=== PATIENT | female | born 1985 | race Caucasian/White ===

== ENCOUNTER 2016-07-03 09:37 | Day surgery (SDC) | payer OTHER ==
[2016-07-03] VITALS (7 sets, daily range): BP systolic 101–118; BP diastolic 68–80; PULSE 44–77; TEMP 98.5
[~2016-07-03] VITALS: Ht 165.1 cm; Wt 72.7 kg
[~2016-07-03 09:37] MED LIST: BCP TD; PRENATAL1 TA1 PO; WARFARIN; ZITHROMAX 250M250 MG PO
[2016-07-03 10:27] LABS: BASO % 0.5 % (0.0-2.0); EOS # 0.2 (0.0-0.7); GRAN # 5.8 (1.4-6.5); GRAN % 72.6 % (42.2-75.2); HEMATOCRIT 41.7 % (37.0-47.0); HEMOGLOBIN 14.7 g/dl (12.5-16.0); LYMPH # 1.4 (1.2-3.4); LYMPH % 17.8 % (20.0-51.0); MEAN CELL VOLUME 93 fl (80.0-100.0); MEAN CORPUSCULAR HEMOGLOBIN 33 pg (27.0-31.0); MEAN CORPUSCULAR HGB CONC 35 g/dl (33.0-37.0); MONO # 0.5 (0.1-0.6); MONO % 6.7 % (1.7-9.3); PLATELET COUNT 143 K/mm3 (130-400); RED BLOOD COUNT 4.49 M/mm3 (4.10-5.30); WHITE BLOOD COUNT 7.9 K/mm3 (4.8-10.8)
[2016-07-03 10:39] LABS: INR 1.1 (0.8-3.0); PROTHROMBIN TIME 12.1 SECONDS (9.7-12.8)
[2016-07-03 10:42] LABS: ADJUSTED CALCIUM 9.3 mg/dL (8.4-10.2); ALANINE AMINOTRANSFERASE 27 U/L (9-52); ALBUMIN 4.2 gm/dL (3.5-5.0); ALKALINE PHOSPHATASE 50 U/L (50-136); ANION GAP 10 mmol/L (7-16); BILIRUBIN,TOTAL 1.1 mg/dL (0.0-1.0); BLOOD UREA NITROGEN 18 mg/dL (7-17); CALCIUM 9.5 mg/dL (8.4-10.2); CARBON DIOXIDE 21 mmol/L (22-30); CHLORIDE 103 mmol/L (98-107); CREATININE, serum 1.03 mg/dL (0.52-1.25); GLUCOSE 112 mg/dL (74-106); PARTIAL THROMBOPLASTIN TIME 31.3 SECONDS (26.0-37.0); SODIUM 134 mmol/L (137-145); TOTAL PROTEIN 7.3 gm/dL (6.4-8.2)
[2016-07-03 10:53] LABS: B-TYPE NATRIURETIC PEPTIDE 1020 pg/mL (0-125)
[2016-07-03 10:55] LABS: TROPONIN-I < 0.012 ng/mL (0.000-0.034)
[2016-07-03] MEDS ORDERED: CEPHALEXIN500 M1 PO (15:19)
[2016-07-03] MEDS ORDERED: NORCO 325 MG-51 TAB PO (15:20)
== END 2016-07-03 17:00 | disposition home or self-care (01) ==
LOC: COL.ER 09:37 → EUO 12:50 → COL.ER 13:05 → PEDS 13:05 → COL.ER 14:13 → PEDS 14:13 → EUO 15:37 → PEDS 15:37 → EUO 17:00
PROVIDERS: Emergency Medicine
DX: Z45.010 Encounter for checking and testing of cardiac pacemaker pulse generator [battery] (principal); I44.2 Atrioventricular block, complete; I08.1 Rheumatic disorders of both mitral and tricuspid valves; Z95.2 Presence of prosthetic heart valve
CPT/HCPCS: OP; C1785; J0690; J2250; J3010; J7030

== ENCOUNTER → 2016-09-21 | Outpatient (REF) ==
[~2016-09-21] MED LIST changes: +CEPHALEXIN500 M1 PO; +NORCO 325 MG-51 TAB PO
== END ==
LOC: WSOH 10:15
DX: Z02.89 Encounter for other administrative examinations (principal)

== ENCOUNTER → 2016-11-07 | Outpatient (REF) | LOC: WSOH 16:30 | DX: Z02.89 Encounter for other administrative examinations (principal) ==

== ENCOUNTER → 2023-12-12 | Outpatient (CLI) | payer OTHER | LOC: COL.VAS 08:24 | DX: Q23.0 Congenital stenosis of aortic valve (principal); I51.7 Cardiomegaly; Z95.2 Presence of prosthetic heart valve ==